=== PATIENT | female | born 1985 | race Caucasian/White ===

== ENCOUNTER 2018-09-13 20:58 | Emergency (ER) | payer MEDICAID ==
[~2018-09-13] VITALS: Ht 165.1 cm; Wt 80.7 kg
[2018-09-13] MEDS ORDERED: FLUORESCEIN SODIUM 1 MG STRIP ONE (21:59)
[2018-09-13] MEDS ORDERED: TETRACAINE HCL 0.5% OPHT DROP 2 ML BOTTLE ONE (21:59)
[2018-09-13] MEDS ORDERED: FLUORESCEIN SODIUM 1 MG STRIP OP ONE (22:00)
[2018-09-13] MEDS ORDERED: TETRACAINE HCL 0.5% OPHT DROP 2 ML BOTTLE OP ONE (22:00)
[2018-09-13 22:20] LABS: *URINE HCG, QUAL NEGATIVE (NEGATIVE)
--- NOTE | 2018-09-13 23:29 | NUR ---
Dr. Godinez at bedside for update.
--- NOTE | 2018-09-13 23:47 | NUR ---
Patient discharged to home in stable conditon. Written and verbal after care instructions given. Patient verbalizes understanding of instructions.
[2018-09-13 23:48] VITALS: BP 145/90
== END 2018-09-13 23:45 | disposition home or self-care (01) ==
LOC: ER 21:02
DX: H11.31 Conjunctival hemorrhage, right eye (principal); M54.5 Low back pain; M25.571 Pain in right ankle and joints of right foot; R51 Headache; V49.49XA Driver injured in collision with other motor vehicles in traffic accident, initial encounter; Y93.89 Activity, other specified; Y92.410 Unspecified street and highway as the place of occurrence of the external cause; Y99.8 Other external cause status
CPT/HCPCS: 70450; 71045; 84703; A4663